=== PATIENT | male | born 1950 | race Caucasian/White ===

== ENCOUNTER 2018-01-16 01:27 | Inpatient (IN) | payer BC, OTHER ==
[~2018-01-16] VITALS: Ht 180.3 cm; Wt 87.1 kg
[~2018-01-16 01:27] MED LIST: ALD25 PO; ASPIR 8181 MG PO; CARVEDILOL25 M1 PO; COL100 PO; IPRATROPIUM BROM3 M2 HHN; LASIX40 MG PO; NIC21 TD; ZES10 PO
[2018-01-16 02:12] LABS: PLATELET COUNT 219 x10^3mcL (130-400); RED CELL DISTRIBUTION WIDTH 13.7 % (11.5-14.5)
[2018-01-16 02:23] LABS: BASOPHIL % 4.7 % (0-2)
[2018-01-16 02:49] LABS: CALCIUM 8.9 mg/dL (8.5-10.1); CARBON DIOXIDE 23.9 mmol/L (21-32); CHLORIDE SERUM 106 mmol/L (98-107); CREATININE SERUM 1.2 mg/dL (0.7-1.3); GFR1 > 60 mL/min; GLUCOSE SERUM 142 mg/dL (74-106); POTASSIUM SERUM 3.8 mmol/L (3.5-5.1); SODIUM SERUM 138 mmol/L (136-145)
[2018-01-16 02:54] LABS: ALKALINE PHOSPHATASE 105 U/L (46-116); ALT/SGPT 18 U/L (16-63); AST/SGOT 31 U/L (15-37); BILIRUBIN TOTAL 0.53 mg/dL (0.20-1.00); TOTAL PROTEIN, SERUM 6.3 g/dL (6.4-8.2)
[2018-01-16 03:00] LABS: ALBUMIN 2.9 g/dL (3.4-5.0)
[2018-01-16 05:39] VITALS: BP 133/91
[2018-01-16 06:00] LABS: CHOLESTEROL/HDL RATIO 4.4; MAGNESIUM 1.9 mg/dL (1.8-2.4); PHOSPHOROUS 4.3 mg/dL (2.5-4.9)
[2018-01-16 06:09] LABS: T3 TOTAL 1.17 ng/mL
[2018-01-16 08:14] LABS: FREE T4 1.02 ng/dL (0.76-1.46); FREE THYROXINE INDEX 2.7 ug/dL (1.4-4.5); T4(THYROXINE) 7.6 ug/dL (4.7-13.3)
[2018-01-16 09:52] VITALS: BP 121/88
[2018-01-16 14:09] VITALS: BP 121/88
[2018-01-16 14:51] VITALS: BP 144/106
[2018-01-16 18:27] VITALS: BP 139/95
[2018-01-16 20:01] LABS: UA SPECIFIC GRAVITY 1.025 (1.005-1.035); microscopic required? YES; urine erythrocyte NEGATIVE (NEGATIVE)
[2018-01-16 20:08] LABS: AMPHETAMINE QUAL UR POSITIVE (See below)
[2018-01-16 21:00] VITALS: BP 134/87
[2018-01-17 05:35] VITALS: BP 124/75
[2018-01-17 07:22] LABS: BASOPHIL % 0.3 % (0-2); PLATELET COUNT 197 x10^3mcL (130-400)
[2018-01-17 07:31] LABS: CALCIUM 7.9 mg/dL (8.5-10.1); CHLORIDE SERUM 104 mmol/L (98-107); CREATININE SERUM 1.1 mg/dL (0.7-1.3); GFR1 > 60 mL/min; GLUCOSE SERUM 111 mg/dL (74-106); MAGNESIUM 1.7 mg/dL (1.8-2.4); PHOSPHOROUS 3.4 mg/dL (2.5-4.9); POTASSIUM SERUM 3.8 mmol/L (3.5-5.1); SODIUM SERUM 139 mmol/L (136-145)
[2018-01-17 09:42] VITALS: BP 118/76
[2018-01-17 13:37] VITALS: BP 104/56
[2018-01-17 17:31] VITALS: BP 126/85
[2018-01-17 19:35] VITALS: BP 123/82
[2018-01-18 05:28] VITALS: BP 108/63
[2018-01-18 06:24] LABS: BASOPHIL % 0.4 % (0-2); PLATELET COUNT 192 x10^3mcL (130-400)
[2018-01-18 06:36] LABS: RED CELL DISTRIBUTION WIDTH 14.8 % (11.5-14.5)
[2018-01-18 06:39] LABS: ALKALINE PHOSPHATASE 82 U/L (46-116); ALT/SGPT 40 U/L (16-63); AST/SGOT 105 U/L (15-37); BILIRUBIN TOTAL 1.14 mg/dL (0.20-1.00); CALCIUM 8.1 mg/dL (8.5-10.1); CARBON DIOXIDE 27.9 mmol/L (21-32); CHLORIDE SERUM 103 mmol/L (98-107); CREATININE SERUM 1.1 mg/dL (0.7-1.3); GFR1 > 60 mL/min; GLUCOSE SERUM 89 mg/dL (74-106); MAGNESIUM 1.7 mg/dL (1.8-2.4); POTASSIUM SERUM 3.4 mmol/L (3.5-5.1); SODIUM SERUM 138 mmol/L (136-145)
[2018-01-18 06:42] LABS: ALBUMIN 2.3 g/dL (3.4-5.0); TOTAL PROTEIN, SERUM 5.5 g/dL (6.4-8.2)
[2018-01-18 07:33] VITALS: Ht 180.3 cm; Wt 87.1 kg
[2018-01-18 08:31] VITALS: BP 130/88
[2018-01-18 12:08] VITALS: BP 123/79
[2018-01-18 17:23] VITALS: BP 108/63
[2018-01-18 20:59] VITALS: BP 124/80
[2018-01-19 06:11] VITALS: BP 107/61
[2018-01-19 06:37] LABS: PLATELET COUNT 191 x10^3mcL (130-400)
[2018-01-19 06:48] LABS: BASOPHIL % 0 % (0-2); RED CELL DISTRIBUTION WIDTH 14.9 % (11.5-14.5)
[2018-01-19 06:54] LABS: CALCIUM 7.3 mg/dL (8.5-10.1); CARBON DIOXIDE 28.5 mmol/L (21-32); CREATININE SERUM 1.5 mg/dL (0.7-1.3); MAGNESIUM 1.7 mg/dL (1.8-2.4); PHOSPHOROUS 4.2 mg/dL (2.5-4.9)
[2018-01-19 07:01] LABS: POTASSIUM SERUM 2.9 mmol/L (3.5-5.1)
[2018-01-19 08:52] VITALS: BP 106/69
[2018-01-19 09:08] VITALS: BP 126/67
[2018-01-19 15:44] LABS: CARBON DIOXIDE 32.1 mmol/L (21-32); CREATININE SERUM 1.5 mg/dL (0.7-1.3); POTASSIUM SERUM 3.2 mmol/L (3.5-5.1)
[2018-01-19 16:36] VITALS: BP 102/67
[2018-01-19 17:35] VITALS: BP 95/55
[2018-01-19 21:34] VITALS: BP 96/64
[2018-01-20 06:00] VITALS: BP 102/62
[2018-01-20 06:51] LABS: BASOPHIL % 0.3 % (0-2); PLATELET COUNT 177 x10^3mcL (130-400)
[2018-01-20 06:57] LABS: RED CELL DISTRIBUTION WIDTH 14.6 % (11.5-14.5)
[2018-01-20 07:08] LABS: CALCIUM 8.1 mg/dL (8.5-10.1); CARBON DIOXIDE 30.3 mmol/L (21-32); CREATININE SERUM 1.3 mg/dL (0.7-1.3); PHOSPHOROUS 3.2 mg/dL (2.5-4.9); POTASSIUM SERUM 3.3 mmol/L (3.5-5.1)
[2018-01-20 10:04] VITALS: BP 104/68
[2018-01-20 14:03] VITALS: BP 110/75
[2018-01-20 18:31] VITALS: BP 112/81
[2018-01-20 21:34] VITALS: BP 113/87
[2018-01-21 05:47] VITALS: BP 104/70
[2018-01-21 06:49] LABS: ALKALINE PHOSPHATASE 79 U/L (46-116); ALT/SGPT 48 U/L (16-63); AST/SGOT 143 U/L (15-37); BILIRUBIN TOTAL 0.38 mg/dL (0.20-1.00); CALCIUM 8.5 mg/dL (8.5-10.1); CHLORIDE SERUM 96 mmol/L (98-107); CREATININE SERUM 1.1 mg/dL (0.7-1.3); GFR1 > 60 mL/min; GLUCOSE SERUM 152 mg/dL (74-106); PHOSPHOROUS 3.6 mg/dL (2.5-4.9); POTASSIUM SERUM 3.7 mmol/L (3.5-5.1); SODIUM SERUM 131 mmol/L (136-145)
[2018-01-21 06:58] LABS: ALBUMIN 2.5 g/dL (3.4-5.0); TOTAL PROTEIN, SERUM 6.1 g/dL (6.4-8.2)
[2018-01-21 09:58] VITALS: BP 111/75
[2018-01-21 10:58] LABS: BASOPHIL % 0.3 % (0-2); PLATELET COUNT 220 x10^3mcL (130-400)
[2018-01-21 11:00] LABS: RED CELL DISTRIBUTION WIDTH 14.7 % (11.5-14.5)
[2018-01-21 13:16] VITALS: BP 101/74
[2018-01-21 18:01] VITALS: BP 105/75
[2018-01-21 21:00] VITALS: BP 102/66
[2018-01-22 05:28] VITALS: BP 107/73
[2018-01-22 09:39] VITALS: BP 99/73
[2018-01-22 13:50] VITALS: BP 92/59
[2018-01-22 17:43] VITALS: BP 111/78
[2018-01-22 21:27] VITALS: BP 94/64
[2018-01-23 05:39] LABS: BASOPHIL % 0.4 % (0-2); PLATELET COUNT 247 x10^3mcL (130-400)
[2018-01-23 05:47] LABS: RED CELL DISTRIBUTION WIDTH 14.6 % (11.5-14.5)
[2018-01-23 05:48] VITALS: BP 99/58
[2018-01-23 06:19] LABS: ALKALINE PHOSPHATASE 100 U/L (46-116); ALT/SGPT 51 U/L (16-63); AST/SGOT 52 U/L (15-37); BILIRUBIN TOTAL 0.5 mg/dL (0.20-1.00); CALCIUM 8.1 mg/dL (8.5-10.1); CARBON DIOXIDE 29.1 mmol/L (21-32); CHLORIDE SERUM 94 mmol/L (98-107); GFR1 > 60 mL/min; GLUCOSE SERUM 99 mg/dL (74-106); MAGNESIUM 2.1 mg/dL (1.8-2.4); PHOSPHOROUS 4.5 mg/dL (2.5-4.9); POTASSIUM SERUM 3.9 mmol/L (3.5-5.1); SODIUM SERUM 132 mmol/L (136-145); TOTAL PROTEIN, SERUM 6.4 g/dL (6.4-8.2)
[2018-01-23 06:27] LABS: ALBUMIN 2.5 g/dL (3.4-5.0)
[2018-01-23 09:47] VITALS: BP 115/81
[2018-01-23] MEDS ORDERED: FLO4 PO (12:25)
[2018-01-23] MEDS ORDERED: BAY PO (12:27)
[2018-01-23] MEDS ORDERED: CARVEDILOL12.5 M1 PO (12:27)
[2018-01-23] MEDS ORDERED: ROC1I IV (12:29)
[2018-01-23 13:47] VITALS: BP 115/81
[2018-01-23 13:54] VITALS: BP 109/73
[2018-01-23 18:26] VITALS: BP 116/54
[2018-01-23 20:46] VITALS: BP 120/77
[2018-01-24] VITALS (7 sets, daily range): BP systolic 91–128; BP diastolic 55–81
[2018-01-25 05:53] VITALS: BP 106/64
[2018-01-25 08:25] VITALS: BP 104/61
[2018-01-25 09:05] VITALS: BP 104/61
[2018-01-25 13:56] VITALS: BP 110/79
[2018-01-25 17:48] VITALS: BP 126/79
[2018-01-25 17:53] VITALS: BP 126/79
== END 2018-01-25 20:03 | disposition home health service (06) | DRG 280 ==
LOC: ED 01:27 → DU 04:55
PROVIDERS: Emergency Medicine; Family Medicine; Internal Medicine; Internal Medicine Pulmonary Disease
PROC: B2111ZZ Fluoroscopy of Multiple Coronary Arteries using Low Osmolar Contrast (ICD-10-PCS; 2018-01-18)
PROC: 4A023N7 Measurement of Cardiac Sampling and Pressure, Left Heart, Percutaneous Approach (ICD-10-PCS; principal; 2018-01-18 09:00)
DX: I21.4 Non-ST elevation (NSTEMI) myocardial infarction (principal); I50.43 Acute on chronic combined systolic (congestive) and diastolic (congestive) heart failure; E44.0 Moderate protein-calorie malnutrition; I42.6 Alcoholic cardiomyopathy; T80.1XXA Vascular complications following infusion, transfusion and therapeutic injection, initial encounter; I11.0 Hypertensive heart disease with heart failure; F43.23 Adjustment disorder with mixed anxiety and depressed mood; E87.6 Hypokalemia; I34.0 Nonrheumatic mitral (valve) insufficiency; J44.9 Chronic obstructive pulmonary disease, unspecified; I80.8 Phlebitis and thrombophlebitis of other sites; F12.10 Cannabis abuse, uncomplicated; F15.10 Other stimulant abuse, uncomplicated; F41.9 Anxiety disorder, unspecified; Z68.26 Body mass index [BMI] 26.0-26.9, adult; F17.210 Nicotine dependence, cigarettes, uncomplicated
CPT/HCPCS: CLHCL; 83880; 84439; 94150; 99406; C1760; C1769; C1887; C1894; G0480; J0696; J1644; J1650; J1940; J2001; J2060; J2250; J2270; J3010; J3370; J3480; J3490; J7030; J7620; P9047; Q0092; Q0163; Q9967

== ENCOUNTER 2018-01-31 21:50 | Emergency (ER) | payer OTHER ==
[~2018-01-31] VITALS: Ht 180.3 cm; Wt 83.5 kg
[~2018-01-31 21:50] MED LIST changes: +BAY PO; +CARVEDILOL12.5 M1 PO; +FLO4 PO; +ROC1I IV
[2018-01-31 22:18] VITALS: Ht 180.3 cm; Wt 83.5 kg
[2018-01-31 23:18] LABS: BASOPHIL % 0.7 % (0-2); PLATELET COUNT 323 x10^3mcL (130-400)
[2018-01-31 23:21] LABS: RED CELL DISTRIBUTION WIDTH 15.3 % (11.5-14.5)
[2018-01-31 23:22] LABS: UA SPECIFIC GRAVITY 1.025 (1.005-1.035); microscopic required? YES; urine erythrocyte NEGATIVE (NEGATIVE)
[2018-01-31 23:28] LABS: CALCIUM 7.9 mg/dL (8.5-10.1); CARBON DIOXIDE 24.9 mmol/L (21-32); CHLORIDE SERUM 103 mmol/L (98-107); CREATININE SERUM 1.2 mg/dL (0.7-1.3); GFR1 > 60 mL/min; GLUCOSE SERUM 89 mg/dL (74-106); POTASSIUM SERUM 4.2 mmol/L (3.5-5.1); SODIUM SERUM 137 mmol/L (136-145)
[2018-01-31 23:41] LABS: ALKALINE PHOSPHATASE 84 U/L (46-116); ALT/SGPT 34 U/L (16-63); AST/SGOT 54 U/L (15-37); BILIRUBIN TOTAL 0.5 mg/dL (0.20-1.00); FREE T4 1.16 ng/dL (0.76-1.46); TOTAL PROTEIN, SERUM 6.4 g/dL (6.4-8.2)
[2018-01-31 23:42] LABS: ALBUMIN 2.6 g/dL (3.4-5.0)
[2018-01-31 23:47] LABS: AMPHETAMINE QUAL UR POSITIVE (See below)
[2018-02-01 00:30] VITALS: BP 129/88
== END 2018-02-01 00:48 | disposition left against medical advice (07) ==
LOC: ED 21:50
PROVIDERS: Emergency Medicine
DX: M62.82 Rhabdomyolysis (principal); R06.02 Shortness of breath; I11.0 Hypertensive heart disease with heart failure; I50.9 Heart failure, unspecified
CPT/HCPCS: 36415; 83880; 84439; Q0092

== ENCOUNTER 2018-02-08 03:55 | Emergency (ER) | payer OTHER ==
[~2018-02-08] VITALS: Ht 180.3 cm; Wt 83.9 kg
[2018-02-08 04:01] VITALS: Ht 180.3 cm; Wt 83.9 kg
[2018-02-08 04:52] LABS: BASOPHIL % 0.9 % (0-2); PLATELET COUNT 332 x10^3mcL (130-400)
[2018-02-08 04:54] LABS: CALCIUM 8.7 mg/dL (8.5-10.1); CARBON DIOXIDE 28.4 mmol/L (21-32); CHLORIDE SERUM 105 mmol/L (98-107); GFR1 > 60 mL/min; GLUCOSE SERUM 125 mg/dL (74-106); POTASSIUM SERUM 3.9 mmol/L (3.5-5.1); SODIUM SERUM 142 mmol/L (136-145)
[2018-02-08 04:58] LABS: RED CELL DISTRIBUTION WIDTH 15.4 % (11.5-14.5)
[2018-02-08 04:59] LABS: ALKALINE PHOSPHATASE 96 U/L (46-116); ALT/SGPT 31 U/L (16-63); AST/SGOT 26 U/L (15-37); BILIRUBIN TOTAL 0.2 mg/dL (0.20-1.00)
[2018-02-08 05:00] LABS: ALBUMIN 2.5 g/dL (3.4-5.0); TOTAL PROTEIN, SERUM 5.9 g/dL (6.4-8.2)
[2018-02-08 05:06] VITALS: BP 112/76
== END 2018-02-08 05:55 | disposition home or self-care (01) ==
LOC: ED 03:55
PROVIDERS: Emergency Medicine
DX: R06.02 Shortness of breath (principal); F41.9 Anxiety disorder, unspecified; I11.0 Hypertensive heart disease with heart failure; I50.9 Heart failure, unspecified
CPT/HCPCS: 36415; 83880; J7620; Q0092